=== PATIENT | female | born 1980 | race Caucasian/White ===

== ENCOUNTER 2018-07-12 21:57 | Emergency (ER) | payer BC ==
[~2018-07-12] VITALS: Ht 177.8 cm; Wt 90.7 kg
[2018-07-12 22:03] VITALS: BP 151/90
--- NOTE | 2018-07-12 22:15 | NUR ---
CALLED PT IN [place], NO RESPONSE
--- NOTE | 2018-07-12 22:42 | NUR ---
CALLED PT IN [place], NO RESPONSE
--- NOTE | 2018-07-12 23:36 | NUR ---
CALLED PT IN [place], NO RESPONSE
--- NOTE | 2018-07-12 23:48 | NUR ---
CALLED PT IN [place], NO RESPONSE
== END 2018-07-12 23:49 | disposition left against medical advice (07) ==
LOC: ER 22:05
DX: Z53.21 Procedure and treatment not carried out due to patient leaving prior to being seen by health care provider (principal)
CPT/HCPCS: A4606; Z7610